=== PATIENT | male | born 1990 | race Caucasian/White ===

== ENCOUNTER 2023-08-06 13:06 | Emergency (ER) | payer MEDICAID ==
[~2023-08-06] VITALS: Ht 182.9 cm; Wt 63.5 kg
[2023-08-06 14:00] LABS: APPEARANCE,URINE CLEAR (CLEAR); BILIRUBIN,URINE NEGATIVE (NEGATIVE); BLOOD, URINE NEGATIVE Ery/uL (NEGATIVE); COLOR,URINE YELLOW (YELLOW); KETONES,URINE NEGATIVE (NEGATIVE); LEUKOCYTE ESTERASE ,URINE 1+ (NEGATIVE); NITRITE, URINE NEGATIVE (NEGATIVE); PROTEIN,URINE NEGATIVE (NEGATIVE); UGLUCOSE NEGATIVE (NEGATIVE)
[2023-08-06 14:21] LABS: RBC,URINE NONE SEEN /HPF (0-2)
[2023-08-06 14:22] LABS: ADD URINE CULTURE YES; BACTERIA,URINE Rare /HPF (None Seen); SQUAMOUS EPITHELIAL CELL,UR Rare /HPF (None Seen)
[2023-08-06 14:25] LABS: BASOPHILS % (AUTO) 0.2 % (0.0-2.0); EOSINOPHILS % (AUTO) 0.3 % (0.0-6.0); HEMATOCRIT 40 % (39-51); HEMOGLOBIN 13.5 g/dL (13.5-17.5); LYMPHOCYTES % (AUTO) 16.1 % (20.0-44.0); MEAN CORPUSCULAR HEMOGLOBIN 29 PG (26.0-33.0); MEAN CORPUSCULAR HGB CONC 34 g/dl (31.0-36.0); MEAN CORPUSCULAR VOLUME 85 fL (80-96); MONOCYTES # (AUTO) 0.7 K/uL (0.1-1.30); MONOCYTES % (AUTO) 5.5 % (2.0-12.0); NEUTROPHILS # (AUTO) 9.8 K/uL (1.8-8.9); NEUTROPHILS % (AUTO) 77.9 % (43.0-81.0); PLATELET COUNT (AUTO) 300 K/uL (150-450); RED BLOOD CELL COUNT(AUTO) 4.71 MIL/uL (4.5-6.0); RED CELL DISTRIBUTION WIDTH 12.4 % (11.5-15.0); WHITE BLOOD COUNT (AUTO) 12.5 K/uL (4.3-11.0)
[2023-08-06 14:50] LABS: ALBUMIN 4.1 g/dL (3.4-5.0); BILIRUBIN,DIRECT 0.3 mg/dL (0.0-0.2); BILIRUBIN,TOTAL 0.6 mg/dL (0.2-1.0); CALCIUM, SERUM 9.6 mg/dL (8.5-10.1); CREATININE 1.1 mg/dL (0.6-1.3); POTASSIUM 4.1 mmol/L (3.5-5.1); TOTAL PROTEIN, SERUM 8.1 g/dL (6.4-8.2)
[2023-08-06] MEDS ORDERED: FAMO-131 PO (16:31)
[2023-08-06 16:48] VITALS: BP 141/75; TEMP 98; O2SAT 96
== END 2023-08-06 16:50 | disposition home or self-care (01) ==
LOC: ER 13:06
DX: K29.70 Gastritis, unspecified, without bleeding (principal); Z60.2 Problems related to living alone
CPT/HCPCS: 36415; 76700-TC; 80048-TC; 80076-TC; 81001; 83690-TC; 85025-TC; 87086-TC

== ENCOUNTER 2025-04-24 00:27 | Emergency (ER) | payer SELFPAY ==
[~2025-04-24] VITALS: Ht 175.3 cm; Wt 63.5 kg
[~2025-04-24 00:27] MED LIST: FAMO-131 PO
[2025-04-24 00:43] VITALS: TEMP 98.7
[2025-04-24 02:05] LABS: PLATELET COUNT (AUTO) 440 K/uL (150-450); RED BLOOD CELL COUNT(AUTO) 4.82 MIL/uL (4.5-6.0); RED CELL DISTRIBUTION WIDTH 14.2 % (11.5-15.0); WHITE BLOOD COUNT (AUTO) 16.4 K/uL (4.3-11.0)
[2025-04-24 02:22] LABS: CALCIUM, SERUM 9.6 mg/dL (8.5-10.1); CREATININE 0.8 mg/dL (0.6-1.3); SODIUM SERUM 136 mmol/L (136-145); UREA NITROGEN, BLOOD 14 mg/dL (7-18)
[2025-04-24 02:31] LABS: APPEARANCE,URINE CLEAR (CLEAR); BLOOD, URINE TRACE-INTA Ery/uL (NEGATIVE); LEUKOCYTE ESTERASE ,URINE TRACE (NEGATIVE); NITRITE, URINE NEGATIVE (NEGATIVE); UGLUCOSE NEGATIVE (NEGATIVE)
[2025-04-24 02:34] LABS: ADD URINE CULTURE NO; SQUAMOUS EPITHELIAL CELL,UR Few /HPF (None Seen)
[2025-04-24 02:37] LABS: ASPARTATE AMINOTRANSFERASE 43 U/L (15-37); TOTAL PROTEIN, SERUM 8.5 g/dL (6.4-8.2)
[2025-04-24 02:40] LABS: BARBITURATE, URINE NEGATIVE (NEGATIVE); BENZODIAZEPINE, URINE NEGATIVE (NEGATIVE); CANNABINOID, URINE NEGATIVE (NEGATIVE); OPIATE, URINE NEGATIVE (NEGATIVE)
[2025-04-24 02:40] LABS: ALCOHOL, BLOOD < 3 mg/dL (0-10)
[2025-04-24 02:41] LABS: AMPHETAMINE, URINE POSITIVE (NEGATIVE); COCCAINE, URINE POSITIVE (NEGATIVE)
[2025-04-24] MEDS ORDERED: ONDA4TAB5 PO (03:43)
[2025-04-24] MEDS ORDERED: PANT20TA2 PO (03:43)
[2025-04-24 03:55] VITALS: BP 117/81; O2SAT 98
== END 2025-04-24 03:56 | disposition home or self-care (01) ==
LOC: ER 00:33
DX: R10.13 Epigastric pain (principal); R11.0 Nausea; Z79.899 Other long term (current) drug therapy; Z87.19 Personal history of other diseases of the digestive system; Z60.2 Problems related to living alone
CPT/HCPCS: 36415; 80053-TC; 81001; 83690-TC; 85025-TC; G0480